=== PATIENT | male | born 1990 | race Caucasian/White ===

== ENCOUNTER 2018-05-19 07:19 | Inpatient (IN) | payer OTHER ==
[~2018-05-19] VITALS: Ht 188 cm; Wt 137.4 kg
[2018-05-19] VITALS (18 sets, daily range): BP systolic 143–195; BP diastolic 83–121
[~2018-05-19 07:19] MED LIST: MEDROLDOSEPACK PO
[2018-05-19 08:05] LABS: ABSOLUTE MONOCYTES 0.6 thou/uL (0.0-1.2); ABSOLUTE NEUTROPHILS 7.1 thou/uL (1.6-8.1); BASOPHILS 0.4 %; EOSINOPHILS 0.5 %; HEMATOCRIT 31.8 % (42.0-52.0); HEMOGLOBIN 10.9 gm/dL (14.0-18.0); LYMPHOCYTES 11.8 %; MCH 31.2 pg (26.0-34.0); MCHC 34.3 g/dL (28.0-37.0); MCV 90.7 fL (80.0-100.0); MONOCYTES 6.8 %; MPV 8.7 fl. (7.2-11.1); NUCLEATED RBCS 0 /100WBC; PLATELET COUNT* 304 thou/uL (150-400); POLYS 80.5 %; RBC 3.51 mil/uL (4.50-6.00); RDW-CV 13.1 % (10.5-14.5); WBC 8.8 thou/uL (4.0-11.0)
[2018-05-19 08:14] LABS: CREATININE 9.6 mg/dL (0.6-1.3)
[2018-05-19 08:17] LABS: POTASSIUM 6.1 mmol/L (3.5-5.1)
[2018-05-19 08:18] LABS: ALBUMIN 3.6 g/dL (3.4-5.0); TOTAL BILIRUBIN 0.6 mg/dL (<0.1-1.0); TOTAL PROTEIN 7.8 g/dL (6.4-8.2)
[2018-05-19 10:22] LABS: AMP/METHAMP Negative (Negative); BARBITURATES Negative (Negative); BENZODIAZEPINES Negative (Negative); COCAINE Negative (Negative); METHADONE Negative (Negative); OPIATES Negative (Negative); PCP Negative (Negative); THC Negative (Negative)
[2018-05-19 10:24] LABS: URINE BILIRUBIN NEGATIVE (Negative); URINE BLOOD 2+ (Negative); URINE CLARITY CLEAR; URINE COLOR STRAW; URINE GLUCOSE-RANDOM NEGATIVE (Negative); URINE KETONES NEGATIVE (Negative); URINE LEUKOCYTES-REFLEX NEGATIVE (Negative); URINE NITRITE-REFLEX NEGATIVE (Negative); URINE PROTEIN 3+ (Negative); URINE UROBILINOGEN 0.2 E.U./dl (0.2-1.0)
[2018-05-19 10:27] LABS: URINE POTASSIUM-RANDOM 30.5 mmol/L
[2018-05-19 10:37] LABS: SQUAMOUS 0-3 Few /LPF (0-3)
[2018-05-19 10:38] LABS: BACTERIA-REFLEX 1-9 Few /HPF (None Seen); URINE RBC 3-10 Few /HPF (0-2); URINE WBC-REFLEX 0-5 Rare /HPF (0-5)
[2018-05-19 10:39] LABS: CASTS None Seen /LPF (None Seen); CRYSTALS None Seen /LPF (None Seen); MUCUS None Seen strn/LPF (None Seen)
--- NOTE | 2018-05-19 11:12 | NUR ---
1020 PATIENT ADMITTED TO ICU 6 PER CART FROM ER. SEE ADMISSION ASSESSMENT
--- NOTE | 2018-05-19 11:44 | NUR ---
RENAL ULTRASOUND IN PROGRESS. PATIENT HAS VOIDS WITH LOOSE STOOLS SINCE KAYEXALATE
--- NOTE | 2018-05-19 14:35 | NUR ---
7784 DR HARVEY HERE TO SPEAK WITH PATIENT AND FAMILY. ORDERS NOTED. DIET RESUMED
[2018-05-19 14:54] LABS: CALCIUM 9.1 mg/dL (8.5-10.1)
--- NOTE | 2018-05-19 15:25 | NUR ---
LABS NOTED AND PAGE OUT TO DR HARVEY. ORTHOSTATICS CHARTED. PRN HYDRALAZINE GIVEN FOR HTN
[2018-05-19 15:36] LABS: % SATURATION 34 % (20-39); IRON 89 ug/dL (50-175)
--- NOTE | 2018-05-19 15:51 | NUR ---
SPOKE WITH DR HARVEY REGARDING BMP RESULTS. NO NEW ORDERS
--- NOTE | 2018-05-19 17:05 | NUR ---
PATIENT ADMITTED TODAY AND PROGRESSING TOWARDS GOALS. SEEN BY NEPHROLOGY AND LABS REPEATED AND REPORTED. BLOOD PRESSURE BETTER CONTROLLED. DIET RESUMED. GOOD SUPPORT FROM FRIENDS AND FAMILY
[2018-05-19 19:52] LABS: SMEAR FOR EOSINOPHILS No Eosinophils Seen
[2018-05-20] VITALS (19 sets, daily range): BP systolic 136–175; BP diastolic 78–108
[2018-05-20 02:05] LABS: COMPLEMENT-C4 37 mg/dL (14-44)
--- NOTE | 2018-05-20 06:44 | NUR ---
PROGRESSING TOWARDS GOALS, RESTING QUIELTY WITH EYES CLOSED MOST OF NOC, USING URINAL TO VOID, SOA WITH EXERTIONAL ACTIVITY INTERMITTENTLY SUCH PUTTING ON BILAT SOCKS, SOA RESOLVES WITH REST, CLONODINE HELPFUL FOR HTN, C/O HEADACHE 3/10 ON NUMERICAL PAIN SCALE, DENIES NAUSEA THIS AM, STATES HAS AWOKE WITH NAUSEA EVERY AM FOR APROX ONE MONTH, TYLENOL 650MG PO GIVEN X1 PER REQUEST THIS AM FOR HEADACHE, SB/SR TRACING BOTTLE TESTER, AFEBRILE, AWAKE, ALERT, AND CONVERSATIVE THIS AM. DENIES NEEDS AT PRESENT TIME. CALL LIGHT IN REACH AT ALL TIMES.
[2018-05-20 07:06] LABS: HEMATOCRIT 26.9 % (42.0-52.0); HEMOGLOBIN 9.2 gm/dL (14.0-18.0); MCH 31.1 pg (26.0-34.0); MCHC 34.3 g/dL (28.0-37.0); MCV 90.8 fL (80.0-100.0); MPV 8.5 fl. (7.2-11.1); RBC 2.96 mil/uL (4.50-6.00); RDW-CV 12.9 % (10.5-14.5); WBC 7.6 thou/uL (4.0-11.0)
[2018-05-20 07:25] LABS: CREATININE 9.2 mg/dL (0.6-1.3); POTASSIUM 5.2 mmol/L (3.5-5.1)
[2018-05-20 07:47] LABS: APTT 23.4 Seconds (25.0-31.3); INR 1.1; PROTIME 11.1 Seconds (9.20-11.50)
--- NOTE | 2018-05-20 10:53 | CON ---
[facility] [address] [place] [address] CONSULTATION Name: NILO JASMINE Room: [address] IN M.R.#: [id number] Admission: 05/19/18 Attend Phys: Johny Smith MD Discharge: Date of : 89 Report #: [id number] THIS REPORT FOR: //name// CC: [facility] physician/PCP Johny Smith NEPHROLOGY CONSULTATION CONSULTING PHYSICIAN: Johny Smith M.D. REASON FOR CONSULTATION: Acute kidney injury. HISTORY OF PRESENT ILLNESS: This is a 28-year-old gentleman with no past medical history, no home medications, who was once told his blood pressure was a bit high, but not high enough to need medications. He was admitted with nausea, vomiting and diarrhea. He denies any hematuria. Denies any regular NSAID use. He does occasionally take some Excedrin, but not on a daily basis. No recent medications, no antibiotics. No rashes or joint aches and no known prior history of kidney disease and no family history of kidney disease. He is admitted with a severely elevated creatinine of 9.6 along with nausea and vomiting. He is admitted to the ICU. His blood pressures were also quite elevated. Currently, he appears to be quite comfortable. REVIEW OF SYSTEMS: Constitutional, psych, heme, eyes, ENT, respiratory, cardiac, GI, , endocrine all negative, except as documented above. PAST MEDICAL HISTORY: History of elevated blood pressure, but not needing medications apparently. FAMILY HISTORY: No known kidney disease. SOCIAL HISTORY: No tobacco. No drugs. No alcohol abuse. PHYSICAL EXAMINATION: VITAL SIGNS: Blood pressure 176/97, pulse 91 and temperature 36.7. GENERAL: In no acute distress. EYES: Extraocular movements intact. EARS: Externally normal. CARDIOVASCULAR: Regular rate. No pericardial friction rub. LUNGS: No crackles. ABDOMEN: Soft, nontender. MUSCULOSKELETAL: Nontender. Some swelling in his lower limbs. PSYCHIATRIC: Awake, alert and oriented x 4. LABORATORY DATA: White cell count 8.8, hemoglobin 10.9 and platelets 304,000. Sodium 137, potassium 6.1, chloride 103, bicarbonate 19, BUN 79, creatinine 9.6, glucose 76 and calcium 9. Albumin 3.6. [place] [address] CONSULTATION Name: KENROYNILO Room: [address]#: [id number] Admission: 05/19/18 Attend Phys: Johny Smith MD Discharge: Date of : 89 Report #: [id number] ASSESSMENT: 1. Acute kidney injury with creatinine of 9.6 on admission; U/A with 2+ blood, 3+ protein and blood pressures in the 200 systolic while also experiencing nausea, vomiting and some diarrhea. Urine drug screen was negative. Kidney ultrasound does show some increased echogenicity. 2. Hypertension has a history of hypertension, but was not on any medications at home. 3. Metabolic acidosis. 4. Hyperkalemia. 5. Hyperphosphatemia. 6. Hematuria. 7. Proteinuria, nephrotic with a urine jpjefcm-vg-pfslsffygm ratio 4.8. PLAN: 1. No emergent indications for dialysis right now. His potassium was medically treated. He will be on a low potassium diet and his lab will be repeated. I did express to him the possible need of dialysis today if his potassium remains refractory to medical treatment. 2. Depending on his response to IV fluids, he may need dialysis tomorrow and eventually a kidney biopsy to help elucidate the cause of his acute kidney injury. 3. Serologic workup will be sent off, including ANCA, JEFF, hep B, hep C, HIV, anti-GBM complement levels and rheumatoid factor. 4. We will start empiric steroids and give one dose today. Start Accu-Cheks as well as an acid protection and nystatin. 5. Check lab again in a.m. Case was discussed with the patient and family in detail. Thank you for requesting my opinion in the care and management of this patient. <ELECTRONICALLY SIGNED> By: Joann Hilliard MD 05/20/18 1053 1405 [id number] Hilliard MD /nt
[2018-05-20 12:05] LABS: ANA INTERPRETATION Negative (Negative)
[2018-05-20 12:05] LABS: HIV-1/HIV-2 ANTIBODY Non Reactive (Non Reactive)
--- NOTE | 2018-05-20 15:30 | EKG ---
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
--- NOTE | 2018-05-20 17:26 | NUR ---
PATIENT REMAINS ON VENT ATTEMPTED TO WEAN PATIENT OFF SEDATION FOR TRIAL PT HAD 4 TO 9 BEATS WIDE COMPLEX QRS, CARDIOLOGY CONSU;LTED AFTERNOON TRIALDCD, CARDIOLOGY SIGNED OFF NO NEW ORDERS GIVEN. ORDERS PLACED FOR AM TRIAL.
--- NOTE | 2018-05-20 17:32 | NUR ---
PATIENT REMAINS ALERT DIALYSIS CATH IN PLACE. AWAITING DIALYSIS BP CONTROLLED TAKING PO WELL. DENIES PAIN OR NAUSEA. PROGRESSING.
[2018-05-21] VITALS (10 sets, daily range): BP systolic 131–162; BP diastolic 77–98
[2018-05-21 02:06] LABS: GLYCOHEMOGLOBIN (HGB A1C) 4.8 % (4.8-5.6)
[2018-05-21 04:32] LABS: HEMATOCRIT 26.1 % (42.0-52.0); HEMOGLOBIN 9.2 gm/dL (14.0-18.0); MCH 31.6 pg (26.0-34.0); MCHC 35.1 g/dL (28.0-37.0); MCV 90.1 fL (80.0-100.0); MPV 9.2 fl. (7.2-11.1); RBC 2.9 mil/uL (4.50-6.00); RDW-CV 12.9 % (10.5-14.5); WBC 9.5 thou/uL (4.0-11.0)
[2018-05-21 04:50] LABS: CALCIUM 8.6 mg/dL (8.5-10.1); MAGNESIUM 1.9 mg/dL (1.8-2.4); PHOSPHORUS* 7.2 mg/dL (2.5-4.9); POTASSIUM 4.4 mmol/L (3.5-5.1)
[2018-05-21 04:51] LABS: CREATININE 7.7 mg/dL (0.6-1.3)
[2018-05-21 04:52] LABS: CALCIUM 8.8 mg/dL (8.5-10.1); CREATININE 7.7 mg/dL (0.6-1.3); PHOSPHORUS* 7.2 mg/dL (2.5-4.9); POTASSIUM 4.6 mmol/L (3.5-5.1)
--- NOTE | 2018-05-21 06:07 | NUR ---
PROGRESSING TOWARDS GOALS, HEMODIALYSIS LAST NOC BY ETHOLOGIST ULTRA FILTRATION WIHOUT FLUID REMOVAL, SCHEDULED TO HAVE HEMODIALYSIS AGAIN TODAY. RESTING QUIELTY WITH EYES CLOSED INTERMITTENLY THROUGHOUT NOC, EASILY AROUSABLE TO VERBAL STIMULI, NO NAUSEA OR VOMITING, DENIES PAIN THIS AM. HYDRALAZINE 10MG IVP GIVEN X1 PER ORDER WITH HELPFUL RESULTS TO MAINTAIN SBP <170 AND DIASOLIC PRESSURE <100. SB/SR TRACING SUBSTATION ELECTRICIAN SUPERVISOR RANGING FROM HIGH 40'S TO 60'S, NO BM THIS SHIFT. DENIES NEEDS AT PRESENT TIME, CALL LIGHT REMAINS IN REACH.
--- NOTE | 2018-05-21 10:15 | NUR ---
SPOKE WITH PT AND GIRLFRIEND AT BEDSIDE. PT NORMALLY IS ACTIVE AND INDEP INCLUDING WORKING. PT SAID HE DOES NOT HAVE A PCP, WILL GIVE PT A LIST OF HOSPITAL-OWNED PHYSICIAN PRACTICES. PT SAID HE HAD AN APPT LAST WEEK WITH ANOTHER PHYSICIAN GROUP IN [place] BUT WHEN HE SHOWED UP FOR HIS 8;00 APPT, NO ONE WAS AT THE OFFICE. PT SAID DR. HARVEY DID AN EXCELLENT JOB EXPLAINING THINGS TO HIM YESTERDAY, HE UNDERSTANDS HE WILL HAVE DIALYSIS AGAIN TODAY, AND WILL BE MOVED OUT OF THE ICU. PT SAID HE HAS TALKED WITH HIS BOSS SO THEY ARE AWARE HE IS IN THE HOSPITAL. DISCUSSED ROLE OF CASE MGT, WILL CONTINUE TO FOLLOW.
--- NOTE | 2018-05-21 10:22 | NUR ---
PATIENT CARE ASSUMED AT 0700. PATIENT DENIES COMPLAINTS. DID INQUIRE WHAT IS HGB A1C WAS, INFORMED IT WAS WNL. PATIENT ATE 100% OF BREAKFAST. TRANSFERING TO ROOM 318 M/S TELE STATUS. REPORT GIVEN TO YANETH RAMOS. PATIENT WILL GO TO DIALYSIS ROOM PRIOR TO HIS NEW ROOM.
[2018-05-21 14:10] LABS: HEPATITIS B SURFACE AG Negative (Negative)
--- NOTE | 2018-05-21 17:32 | NUR ---
PT TRANSFERRED TO 318 AFTER DIALYSIS AT 1345. PT ALERT AND ORIENTED X4. DENIES PAIN. TOLERATING RENAL DIET. VSS. SINUS CARA ON CAGE OPERATOR. PT IS UP AD GALLO. PT HAS NO OTHER CONCERNS AT THIS TIME. SEE ASSESSMENT AND VITALS FOR OTHER DETAILS. CALL LIGHT WITHIN REACH, WILL CONTINUE TO MONITOR .
[2018-05-22] VITALS (7 sets, daily range): BP systolic 139–185; BP diastolic 83–116
[2018-05-22 04:05] LABS: HEMATOCRIT 27.6 % (42.0-52.0); HEMOGLOBIN 9.4 gm/dL (14.0-18.0); MCH 31.1 pg (26.0-34.0); MCV 91.5 fL (80.0-100.0); MPV 9.8 fl. (7.2-11.1); RBC 3.02 mil/uL (4.50-6.00); RDW-CV 12.7 % (10.5-14.5); WBC 7.9 thou/uL (4.0-11.0)
[2018-05-22 04:22] LABS: CALCIUM 8.5 mg/dL (8.5-10.1); MAGNESIUM 1.9 mg/dL (1.8-2.4); POTASSIUM 5.3 mmol/L (3.5-5.1)
[2018-05-22 04:23] LABS: CREATININE 6.5 mg/dL (0.6-1.3)
--- NOTE | 2018-05-22 06:08 | NUR ---
PT SLEPT ON AND OFF THIS SHIFT. ASSESSMENT DOCUMENTED. MEDS GIVEN PER E-JUL. NO REPORTS OF PAIN THIS SHIFT. IV'S PATENT. I&O'S CHARTED. PT REMAINED NPO AFTER MIDNIGHT. BP MEDS GIVEN THIS AM WITH SIP OF WATER. TELE MONITOR IN PLACE READING SB. WILL CONTINUE WITH PLAN OF CARE.
[2018-05-22 06:10] LABS: PROTIME 10.7 Seconds (9.20-11.50)
--- NOTE | 2018-05-22 11:26 | NUR ---
SHIVA met with pt and provided list of physicians for pt to be able to choose and establish a PCP. SHIVA also provided a letter for pt to be able to provide to his boss verifying pt hospitalization.
--- NOTE | 2018-05-22 13:28 | NUR ---
Nutrition: Pt assessed for high BMI of 40.0. Pt usually weighs ~300#. Current wt 311#, likely fluid-related. Pt on HD. DM, on insulin. Currently NPO. Was admitted with N/V. "Feels better," per progress note. cr 6.5, K+ 5.3. Likely will discharge once outpatient dialysis is set up. Pt to see dialysis RD on outpatient setting with his dialysis clinic. Consider Mild risk at this time.
--- NOTE | 2018-05-22 14:00 | NUR ---
MET WITH PT, HIS GIRLFRIEND, FATHER, AND SISTER WERE ALSO IN THE ROOM. GAVE PT THE NEW PATIENT INFORMATIONAL PACKET FROM [email or web address]. WILL MAKE ARRANGEMENTS FOR OUTPATIENT HEMODIALYSIS AT DISCHARGE. ANSWERED THEIR QUESTIONS ABOUT DIALYSIS. PT AWARE THE PLAN IS FOR RENAL BIOPSY AND TUNNELED DIALYSIS CATHETER TOMORROW, PT IS HOPING TO DISCHARGE BEFORE THE WEEKEND.
--- NOTE | 2018-05-22 15:54 | NUR ---
ORDER TO SET UP OUTPT.DIALYSIS FOR PT. CONTACTED [facility] [phone]. RECEIVED FAX CHECKLIST FROM THEM OF ITEMS NEEDED. FAXED FACE SHEET,RENAL CONSULT,IMMUNOLOGY RESULTS-HEP B PANEL,MED LIST, NO ALLERGY INFO,AND 2 DIALYSIS FLOW SHEETS TO [phone]. PT.PREFERS [facility], SCHEDULE WITH LATE CHAIR TIME. WHEN CHAIR TIME KNOWN AND INSURANCE [facility] WILL FAX A CONFIRMATION TO CM OFFICE.
--- NOTE | 2018-05-22 18:18 | NUR ---
PATIENT RESTING IN BED. PATIENT IS UP AD GALLO IN ROOM. PATIENT WENT FOR RENAL BIOPSY THIS AM BUT WAS NOT DONE AND PATIENT RETURNED TO ROOM. RENAL BIOPSY RESCHEDULED FOR AM. PATIENT IS SCHEDULED FOR DIALYSIS THIS EVENING. PATIENT DENIES ANY PAIN. PATIENT DENIES ANY NEEDS AT THIS TIME. CALL LIGHT WITHIN REACH. WILL CONTINUE TO MONITOR.
--- NOTE | 2018-05-22 23:26 | NUR ---
RECIEVED REPORT AND ASSUMED CARE OF PT AT 1900. DIALYSIS NURSE HERE AT THAT TIME TO DIALISE PT. DIALYSIS NURSE REPORTS NO FLUID TAKEN OFF, BLOOD FILTERED. PT HYPERTENSIVE TOWARD END OF TREATMENT. PT RECIEVED IV HYDRALAZINE UPON COMPLETION OF DIALYSIS. VITAL SIGNS CHARTED.
[2018-05-23] VITALS (15 sets, daily range): BP systolic 133–174; BP diastolic 74–104
--- NOTE | 2018-05-23 00:11 | NUR ---
PT'S BLOOD PRESSURE AT MIDNIGHT 164/103. DR WES YA, BLOOD PRESSURES AND MEDICATIONS REVIEWED. NEW ORDERS RECIEVED.
[2018-05-23 04:34] LABS: HEMATOCRIT 27.4 % (42.0-52.0); HEMOGLOBIN 9.7 gm/dL (14.0-18.0); MCHC 35.6 g/dL (28.0-37.0); MCV 89.9 fL (80.0-100.0); MPV 9.7 fl. (7.2-11.1); RBC 3.05 mil/uL (4.50-6.00); RDW-CV 12.9 % (10.5-14.5); WBC 6.2 thou/uL (4.0-11.0)
[2018-05-23 04:35] LABS: PROTIME 10.7 Seconds (9.20-11.50)
[2018-05-23 04:46] LABS: ALBUMIN 2.7 g/dL (3.4-5.0); CALCIUM 8.2 mg/dL (8.5-10.1); POTASSIUM 4.3 mmol/L (3.5-5.1)
[2018-05-23 04:53] LABS: CREATININE 5.1 mg/dL (0.6-1.3)
--- NOTE | 2018-05-23 05:56 | NUR ---
PT RECIEVED HEMODIALYSIS AT START OF SHIFT. NO FLUID TAKEN OFF PER DIALYSIS NURSE. PT VOIDING CLEAR YELLOW URINE, SEE I&O. PT'S YPERTENSIVE DURING SHIFT UNTIL RECIEVING PO PROCARDIA XL. PT'S HEART RATE DURING NIGHT 40'S-50'S. PT AFEBRILE, O2 SAT > 97% ON ROOM AIR DURING NIGHT. PT NPO AFTER MIDNIGHT FOR RENAL BIOPSY TODA, AM MEDS HELD.
--- NOTE | 2018-05-23 16:04 | NUR ---
SPOKE WITH [facility] SET UP TO CHECK ON PT.S STATUS. SHE SAID IT LOOKS LIKE PT.IS FINANCIALLY CLEARED. ERICKSON/[facility] CALLED CM AFTER CM HAD SPOKEN WITH RYANN. SHE SAID PT.IS MEDICALLY AND FINANCIALLY CLEARED FOR DIALYSIS. CHAIR TIME IS AT [facility] M-W- AT 2;15. HAVE PT. COME 15 TO 30 MIN.EARLY FIRST TIME TO DO CONSENTS. CARLA HUMAN RESOURCES MANAGER MANUFACTURING TO INFORM PT.AND NURSE. [facility] NEEDS ONE MORE FLOW SHEET AND DIALYSIS CATHETER PLACEMENT REPORT. WILL FAX.
--- NOTE | 2018-05-23 16:21 | NUR ---
VASCULAR NURSE ATTEMPTED TO SPEAK TO THE PATIENT TO INFORM OF HIS BS [facility] CHAIR TIME. PATIENT RESTING WITH EYES CLOSED AND UNABLE TO AROUSE. CM WILL F/U WITH THE PATIENT TO INFORM OF CHAIR TIME. D/C UTILITY TENDER CARDING ALSO SPOKE TO THE RN IN-CHARGE OF THE PATIENT TO INFORM OF THE PATIENT'S CHAIR TIME. RN IN AGREEMENT AND WILL INFORM PHYSICIAN OF CHAIR TIME. D/C UTILITY TENDER CARDING ALSO FAXED [facility] PATIENT'S RECENT FLOWSHEETS, AND TUNNELED CATH PLACEMENT. CM WILL REMAIN AVAILABLE TO ASSIST AND FOLLOW NEEDED.
--- NOTE | 2018-05-23 19:48 | NUR ---
PATIENT RESTING INBED. PATIENT IS UP AD GALLO IN ROOM. PATIENT HAD RENAL BIOPSY AND DIALYSIS CATHETER PLACEMENT THIS AFTERNOON WITHOUT INCIDENT. PATIENT DENIES ANY PAIN. PATIENT HAS GOOD APPETITE. PATIENT DENIES ANY NEEDS AT THIS TIME. CALL LIGHT WITHIN REACH. WILL CONTINUE TO MONITOR.
--- NOTE | 2018-05-23 22:52 | NUR ---
INITAL ASSESMENT COMPLETED AT 2024. PT REPORTED PAIN AT TEMPORARY DIALYSIS CATH SITE IN LEFT CHEST. NO PAIN MEDS ON EMAR. PAGED DR ANTONIO AND RECIEVED ORERS. PT GIVEN 2 NORCO FOR PAIN WITH GOOD RESULTS. PT RESTING IN BED WATCHING TV. CALL LIGHT IN REACH, PT USING APPROPRIATELY.
[2018-05-24] VITALS (8 sets, daily range): BP systolic 140–186; BP diastolic 88–117
--- NOTE | 2018-05-24 01:28 | NUR ---
PAGED DR GROSSMAN FOR SYSTOLIC BP 107. RECIECED ORDER FOR PO HYDRALAZINE. WAITING FOR SUPERISOR TO DELIVER MED.
[2018-05-24 03:51] LABS: HEMATOCRIT 29.4 % (42.0-52.0); HEMOGLOBIN 10.1 gm/dL (14.0-18.0); MCH 31.2 pg (26.0-34.0); MCHC 34.3 g/dL (28.0-37.0); MCV 91.1 fL (80.0-100.0); MPV 9.4 fl. (7.2-11.1); RBC 3.23 mil/uL (4.50-6.00); RDW-CV 12.8 % (10.5-14.5); WBC 7.8 thou/uL (4.0-11.0)
--- NOTE | 2018-05-24 03:52 | NUR ---
PT'S BLOOD PRESSURE AT 0330 168/107 AFTER RECIEVING 20 MG PO HYDRALAZINE AT 0130. SET PAGE TO DR GROSSMAN. WAITING FOR RETURN CALL.
[2018-05-24 04:25] LABS: ALBUMIN 2.7 g/dL (3.4-5.0); CALCIUM 8.2 mg/dL (8.5-10.1); MAGNESIUM 2.2 mg/dL (1.8-2.4); POTASSIUM 4.4 mmol/L (3.5-5.1); TOTAL BILIRUBIN 0.3 mg/dL (<0.1-1.0)
[2018-05-24 04:29] LABS: CREATININE 6.5 mg/dL (0.6-1.3)
--- NOTE | 2018-05-24 05:32 | NUR ---
RECIEVED ORDERS FROM DR KING TO GIVE IV HYDRLAZINE X1 HEN HAVE PHYSICAN ON ROUNDS ADJUST MEDS. AT 0420 T ECIEVED IV YDRALAZINE. AT THIS TIME PT'S BLOOD PRESSURE 152/98. PT'S HEART RATE DURIN SHIFT 60'S TO 80'S. O2 SAT > 96% ON ROOM AIR. POSSIBLE DILAYSIS TODAY. PT VOIDING LÓPEZ AMOUNTS OF CLEAR YELOW URINE. BUN 78 CREATININE 6.5 GFR 10. PT ASYMTOMATIC DURING SHIFT WITH DIALSTOLIC BLOOD PRESSURE > 100. PT CONTINUES TO BE HYPERTENSIVE.
--- NOTE | 2018-05-24 06:33 | NUR ---
PT'S DIASTOLIC BLOOD PRESSURE > 100 FOR MOST OF NIGHT. PAGED LEAD JAVA DEVELOPER ARCHITECT PHYSICAN TWICE REGARDING UNCONTROLLED HYPERTENSION. PT RECIEVED ADDITIONAL MEDS ORDERED, SEE EMAR. PT VOICED NO REPORT OF PAIN OR DISCOMFORT DURING SHIFT. LAB VALUES AND I&O REPORTED TO DIALYSIS NURSE AT 0600. AM LABS PRINTED AND GIVEN TO DIALYSIS NURSE. PT SLEEPING AT THIS TIME. WILL CONTINUE PLAN OF CARE.
--- NOTE | 2018-05-24 13:02 | NUR ---
SW met with pt and provided detailed information of pt dialysis arrangements at [facility] 2:15 chair time; pt to arrive at 1:45pm on Sunday for 1st visit and then 2:00 on visits thereafter. Pt to dc home with family support when medically stable/ready; no other known needs at this time.
--- NOTE | 2018-05-24 20:04 | NUR ---
PATIENT RESTING IN BED. PATIENT IS UP AD GALLO IN ROOM. PATIENT DENIES ANY PAIN. PATIENT HAD DIALYSIS THIS AM WITHOUT INCIDENT. BLOOD PRESSURE MEDICATIONS ADJUSTED BY PHYSICIANS AND ADMINISTERED ORDERED. BLOOD PRESSURE IMPROVED THIS AFTERNOON. PATIENT HAS GOOD APPETITE. PATIENT DENIES ANY NEEDS AT THIS TIME. CALL LIGHT WITHIN REACH. WILL CONTINUE TO MONITOR.
--- NOTE | 2018-05-24 21:50 | NUR ---
RECIEVED REPORT AND ASSUMED CARE OF PT AT 130. PT RESTING IN ED AT THAT TIME WATCHING TELEVISION WITH GIRLFRIEND. DISCUSSED MEDICATION CHANGES MADE TODAY IN EFFORT TO REDUCE BLOOD PRESSURE TO SAFER LEVEL. PT BOUGHT HOME BLOOD PRESSURE CUFF TO MONITOR BP AT HOME. CUFF TESTED AND FUNCTIONS PROPERLY. HS MEDS GIVEN ORDERED, SEE EMAR. PT DENIES PAIN OR DISCOMFORT. CALL LIGHT IN REACH, PT USING APPROPRIATELY.
[2018-05-25] VITALS (8 sets, daily range): BP systolic 131–186; BP diastolic 87–117
--- NOTE | 2018-05-25 02:52 | NUR ---
PT'S BLOOD RESSURE ELEVATED AT IDNIGHT. DIASTOLIC PRESSURE 102. CALLED DR MORAN. NO ORDERS RECIEVED. CALLED DR VALDEZ AD REPORTED PT'S KIDNEY INJURY, DIALYSIS AND NIGHTLY ELEVATION IN BLOOD PRESSURE. REPORTED MED LIST. RECIEVED ORDER FOR CLONADINE NOW AND PRN.
[2018-05-25] MEDS ORDERED: CALCIUM ACETAT667 MG PO (15:15)
[2018-05-25] MEDS ORDERED: CARVEDILOL12.5 MG PO ×2 (15:16→15:17)
[2018-05-25] MEDS ORDERED: CLONIDINE0.1 PO (15:17)
[2018-05-25] MEDS ORDERED: NIFEDIPINE ER90 M1 PO (15:19)
--- NOTE | 2018-05-29 15:06 | PATH ---
[address] [address] PATHOLOGY RPT PROCEDURE Name: KENROYROYCECONTRERAS CURIEL Room: [address] IN ..#: [id number] Admission: 05/19/18 Date of : [birth year] Discharge: 05/25/18 Report #: [id number] Path Case #: [id number] [facility] Accession Number: [id number] . 01 Material submitted: . RENAL-LEFT . 01 Clinical history: . Failure . 02 Diagnosis: Special studies report received from [facility], [address] [place] [address], [place] [address], on case [id number], labeled with their number [id number], dated 05/25/2018. . Specimen submitted: By Igor Villalobos MD For Kidney, biopsy . DIAGNOSIS: Sclerosing IgA Nephropathy. See Comment. . Tubular Atrophy and Interstitial Fibrosis, Severe. . Arteriolar Hyalinosis, Moderate to Severe. . Global () and Segmental Glomerulosclerosis. . Comment: Raymond Classification score is M0 E0 S1 T2 C0. . Clinical History: The patient is a 28-year-old male with kidney biopsy. No other history is available at this time. . Gross Description: Received from [facility] via [facility] are two specimen bottles; one contains formalin and the other contains Jozef's fixative. The bottles are labeled with the patient's name (Nilo Jasmine). . Received in formalin are one piece of light cole tissue measuring 0.9 x 0.1 x 0.1 cm (fatty ends and dissected). One end is submitted for electron microscopy and the remainder of the tissue is submitted in its entirety for light microscopy. . Received in Jozef's fixative is one piece of cole tissue measuring 1.6 x 0.1 x 0.1 cm (fatty ends). The specimen is submitted in its entirety for immunofluorescence [place] [address] PATHOLOGY RPT PROCEDURE Name: NILO JASMINE MOISÉS Room: [address]#: [id number] Admission: 05/19/18 Date of : [birth year] Discharge: 05/25/18 Report #: [id number] Path Case #: [id number] Microscopic Description: LIGHT MICROSCOPY: . Tissue submitted for light microscopic examination is represented by renal cortex containing up to 11 glomeruli, nine of which are globally sclerotic. The remaining glomeruli appear normal in size and exhibit mild increase in mesangial matrix. One glomerulus displays segmental scarring. No significant increase in mesangial cellularity is noted. There is no evidence of endocapillary proliferation, fibrinoid necrosis, or acute/cellular crescent formation. There is severe tubular atrophy and interstitial fibrosis involving approximately 80% of the cortex sampled. There is mild mixed interstitial inflammation seen in the areas of tubulointerstitial scarring. Arterioles exhibit moderate to severe arteriolar hyalinosis. Arteries exhibit mild focal intimal fibrosis. No evidence of arteritis is identified. Toluidine blue-stained sections for electron microscopy show no glomeruli for interpretation even on deeper sectioning. . Standard of care requirements for proper analysis of renal biopsies mandates serial sections, and PAS, Lackey silver, trichrome and SMMT stains at multiple levels. PAS stains are used to evaluate various aspects of the glomerular, tubular, and vascular basement membranes. Lackey silver stains are used to evaluate thickening, reduplication, "spiking" or "bubbling" of the glomerular basement membrane. Toluidine blue stained sections highlight glomerular basement membranes and demonstrates unusual types of deposits. It also reveals details of tubular epithelial cells and aids in the analysis of vascular lesions. Juan Antonio trichrome stains are used to evaluate interstitial fibrosis and basement membrane deposits. The SMMT stain helps evaluate basement membrane changes, immune deposits and tubulointerstitial scarring. Controls are routinely run on all special stains and are verified for acceptability. A review of the technical quality of routine slides is made before results are reported. . IMMUNOFLUORESCENCE: The sections are stained for IgG, IgM, IgA, C3, C1q, albumin, fibrinogen, and kappa and lambda light chains. Twenty glomeruli are present for evaluation including 15 globally sclerotic. The glomeruli focally display segmental scarring. Glomeruli reveal diffuse global granular mesangial staining for IgA (3+), C3 (2+), kappa (3+), and lambda (3+). All other stains are negative in glomeruli. There is no significant extraglomerular staining. [place] and lambda stain equally throughout the tubulointerstitium. . Positive and negative controls are run on all immunofluorescent stains and are verified for acceptability before results are reported. Internal antigens serve as positive controls. . ELECTRON MICROSCOPY: One block is prepared. No intact [place] [address] PATHOLOGY RPT PROCEDURE Name: NILO JASMINE Room: [address] IN M.R.#: [id number] Admission: 05/19/18 Date of : 89 Discharge: 05/25/18 Report #: [id number] Path Case #: [id number] ultrastructural examination. . Special procedures including immunofluorescence and electron microscopy correlate with the light microscopy findings. . Note: Some of the tests reported here may have been developed and performance characteristics determined by [facility]. They have not been cleared or approved by the U.S. Food and Drug Administration (FDA). The FDA does not require this test to go through premarket FDA review. This test is used for clinical purposes. It should not be regarded as investigational or for research. [facility] is certified under the Clinical Laboratory Improvement Amendments of 1988 (CLIA) as qualified to perform high complexity clinical laboratory testing. . Physician/Physician's office called on 05/27/2018 at 2:38 PM Central. . *I have reviewed the clinical history, the pertinent gross findings, all microscopic materials, discussed the case with the clinician when appropriate, and have rendered the final diagnosis. . . Final Diagnosis performed by Pedro Bhandari M.D. Electronically signed 05/27/2018 4:25:35 PM . . A complete copy of the report is on file. . Professional and technical services performed by [facility] at [address] [place] [address], [place] [address], [place], [address]. . (AMJ 05/28/2018) . [facility]/05/29/2018 . 02 Electronically signed: . Eduardo Carter MD, Pathologist NPI- [id number] . 01 Gross description: . The specimen is received in formalin, labeled "Nilo Jasmine renal-left". Received is a needle core of pale cole soft tissue measuring 0.8 cm in length and 0.1 cm in diameter. The specimen is forwarded to an outside laboratory for further processing. . Also received is a container of Jozef's fixative, labeled "Adrielavi Jasmine renal-left". Received is a single needle core [place] [address] PATHOLOGY RPT PROCEDURE Name: KENROYNILO CURIEL Room: [address] IN [facility].#: [id number] Admission: 05/19/18 Date of : [birth year] Discharge: 05/25/18 Report #: [id number] Path Case #: [id number] tissue measuring 1.2 cm in length by 0.1 cm in diameter. The specimen is forwarded to an outside laboratory for direct immunofluorescence studies. (CAA; 05/24/2018) QAC/QAC . 02 Pathologist provided ICD-10: N17.9 . 02 CPT . 604393 Specimen Comment: A courtesy copy of this report has been sent to Specimen Comment: [phone], , . Specimen Comment: Report sent to , and Performed at: [address], [place], [place] [id number] MD Gwyn Sandoval MD Phone: [phone] Performed at: 02 [facility] [address], [place], [place] [id number] MD Eduardo Carter MD Phone: [phone]
== END 2018-05-25 15:52 | disposition home or self-care (01) | DRG 674 ==
LOC: M.ERS 07:19 → M.TBA-ER 08:57 → M.ICU 08:57 → M.3W 08:57 → M.ICU 10:25 → M.3W 05-21 10:52
PROVIDERS: Internal Medicine; Internal Medicine Nephrology; Personal Emergency Response Attendant; ADMIT Internal Medicine
PROC: B5181ZA Fluoroscopy of Superior Vena Cava using Low Osmolar Contrast, Guidance (ICD-10-PCS; principal; 2018-05-20)
PROC: 02HV33Z Insertion of Infusion Device into Superior Vena Cava, Percutaneous Approach (ICD-10-PCS; principal; 2018-05-20)
PROC: B548ZZA Ultrasonography of Superior Vena Cava, Guidance (ICD-10-PCS; principal; 2018-05-20)
PROC: 5A1D70Z Performance of Urinary Filtration, Intermittent, Less than 6 Hours Per Day (ICD-10-PCS; 2018-05-21)
PROC: B5181ZA Fluoroscopy of Superior Vena Cava using Low Osmolar Contrast, Guidance (ICD-10-PCS; 2018-05-23)
PROC: B548ZZA Ultrasonography of Superior Vena Cava, Guidance (ICD-10-PCS; 2018-05-23)
PROC: 0TB13ZX Excision of Left Kidney, Percutaneous Approach, Diagnostic (ICD-10-PCS; 2018-05-23)
PROC: 0JH63XZ Insertion of Tunneled Vascular Access Device into Chest Subcutaneous Tissue and Fascia, Percutaneous Approach (ICD-10-PCS; 2018-05-23)
PROC: 02PYX3Z Removal of Infusion Device from Great Vessel, External Approach (ICD-10-PCS; 2018-05-23)
PROC: 02HV33Z Insertion of Infusion Device into Superior Vena Cava, Percutaneous Approach (ICD-10-PCS; 2018-05-23)
PROC: 5A1D70Z Performance of Urinary Filtration, Intermittent, Less than 6 Hours Per Day (ICD-10-PCS; 2018-05-24)
DX: N17.9 Acute kidney failure, unspecified (principal); E87.2 Acidosis; I16.1 Hypertensive emergency; E87.5 Hyperkalemia; E83.39 Other disorders of phosphorus metabolism; R31.9 Hematuria, unspecified; N18.9 Chronic kidney disease, unspecified; I12.9 Hypertensive chronic kidney disease with stage 1 through stage 4 chronic kidney disease, or unspecified chronic kidney disease; K52.9 Noninfective gastroenteritis and colitis, unspecified; D64.9 Anemia, unspecified; E66.9 Obesity, unspecified; Z68.38 Body mass index [BMI] 38.0-38.9, adult; Z99.2 Dependence on renal dialysis; Z79.899 Other long term (current) drug therapy; Z82.49 Family history of ischemic heart disease and other diseases of the circulatory system